=== PATIENT | male | born 1990 | race Caucasian/White ===

== ENCOUNTER 2017-03-14 22:10 | Emergency (ER) | payer BC, OTHER ==
[~2017-03-14] VITALS: Ht 170.2 cm; Wt 85.0 kg
[~2017-03-14 22:10] MED LIST: CIPR0.3S2 EACH EAR; Z.0.NO CURRENT MEDS
[2017-03-14 22:16] VITALS: BP 145/91; PULSE 96; RESP 18; TEMP 98.5; O2SAT 98
[2017-03-14] MEDS ORDERED: TRAM50TA PO (22:21)
--- NOTE | 2017-03-15 00:30 | PD ---
HPI Chief Complaint: Psychiatric Symptoms Time Seen by Provider: 00:20 Travel History International Travel<30 days: No Contact w/Intl Traveler<30days: No Traveled to known affect area: No History of Present Illness HPI 26-year-old male complains of depression and suicidal. Patient was Wiley acted and brought to ED for evaluation. Patient denies any medical problem. Patient denies any headache. Patient denies any chest pain or shortness of breath. Patient denies abdominal pain. Patient denies any alcohol or illicit drug abuse. PFSH Past Medical History Heart Rhythm Problems: Yes (HEART MURMUR) Cardiovascular Problems: Yes (MURMUR) Diminished Hearing: No Tetanus Vaccination: > 5 Years Influenza Vaccination: No Social History Alcohol Use: Yes (weekend) Tobacco Use: Yes (1/2ppd) Substance Use: No Allergies-Medications (Allergen,Severity, Reaction): Coded Allergies: penicillin G (Unverified Allergy, Severe, N/V, 03/14/17) Reported Meds & Prescriptions Reported Meds & Active Scripts Active Reported Tramadol (Tramadol HCl) 50 Mg Tab 50 Mg PO Q6H PRN Review of Systems General / Constitutional: No: Fever Eyes: No: Visual changes HENT: No: Headaches Cardiovascular: No: Chest Pain or Discomfort Respiratory: No: Shortness of Breath Gastrointestinal: No: Abdominal Pain Genitourinary: No: Dysuria Musculoskeletal: No: Pain Skin: No Rash Neurologic: No: Weakness Psychiatric: No: Depression Endocrine: No: Polydipsia Hematologic/Lymphatic: No: Easy Bruising Physical Exam Narrative GENERAL: Well-nourished, well-developed patient. SKIN: Focused skin assessment warm/dry. HEAD: Normocephalic. EYES: No scleral icterus. No injection or drainage. NECK: Supple, trachea midline. No JVD or lymphadenopathy. CARDIOVASCULAR: Regular rate and rhythm without murmurs, gallops, or rubs. RESPIRATORY: Breath sounds equal bilaterally. No accessory muscle use. GASTROINTESTINAL: Abdomen soft, non-tender, nondistended. MUSCULOSKELETAL: No cyanosis, or edema. BACK: Nontender without obvious deformity. No CVA tenderness. Neurologic exam normal. Data Data Last Documented VS Vital Signs Date Time Temp Pulse Resp B/P (MAP) Pulse Ox O2 Delivery O2 Flow Rate FiO2 03/14/17 22:16 98.5 96 18 145/91 (109) 98 Orders Orders Complete Blood Count With Diff (03/15/17 00:29) Comprehensive Metabolic Panel (03/15/17 00:29) Psych Screen (03/15/17 00:29) Drug Screen, Random Urine (03/15/17 00:29) MDM Medical Decision Making Medical Screen Exam Complete: Yes Emergency Medical Condition: Yes Differential Diagnosis Differential diagnosis including adjustment disorder, depression, suicidal. Narrative Course 26-year-old male with depression and suicidal. Patient was Wiley donna. Jimmy Infante MD Mar 15, 2017 00:30
[2017-03-15 02:00] VITALS: BP 120/68; PULSE 74; RESP 16; O2SAT 99
[2017-03-15 02:10] LABS: AUTOMATED NEUTROPHIL # 13.2 TH/MM3 (1.8-7.7); BASOPHIL # 0.1 TH/MM3 (0-0.2); BASOPHIL % 0.6 % (0.0-2.0); EOSINOPHIL # 0.1 TH/MM3 (0-0.4); EOSINOPHIL % 0.4 % (0.0-4.0); HEMATOCRIT 45.9 % (39.0-51.0); HEMO FLAGS DIFF FINAL; LYMPH % 11.4 % (9.0-44.0); LYMPHOCYTE # 1.8 TH/MM3 (1.0-4.8); MEAN CELL VOLUME 85.8 FL (80.0-100.0); MEAN CORPUSCULAR HEMOGLOBIN 29.7 PG (27.0-34.0); MEAN CORPUSCULAR HGB CONC 34.6 % (32.0-36.0); MONO % 5.3 % (0.0-8.0); NEUT % 82.3 % (16.0-70.0); PLATELET COUNT 282 TH/MM3 (150-450); RED BLOOD COUNT 5.35 MIL/MM3 (4.50-5.90); RED CELL DISTRIBUTION WIDTH 12.3 % (11.6-17.2); WHITE BLOOD COUNT 16.1 TH/MM3 (4.0-11.0)
[2017-03-15 02:27] LABS: ANION GAP 9 MEQ/L (5-15); AST (GOT) 25 U/L (15-37); BICARBONATE 24.7 MEQ/L (21.0-32.0); BLOOD UREA NITROGEN 19 MG/DL (7-18); CHLORIDE 106 MEQ/L (98-107); GLOMERULAR FILTRATION RATE 77 ML/MIN (>89); POTASSIUM 3.5 MEQ/L (3.5-5.1); SODIUM (NA) 140 MEQ/L (136-145)
[2017-03-15 02:30] LABS: ALKALINE PHOSPHATASE 69 U/L (45-117); ALT (GPT) 23 U/L (12-78); TOTAL BILIRUBIN ADULT 0.3 MG/DL (0.2-1.0)
[2017-03-15 10:42] VITALS: BP 136/69; PULSE 77; RESP 18; TEMP 98.6; O2SAT 99
[2017-03-15] MEDS ORDERED: IBUPROFEN 400 MG TAB PO ONE (12:30)
[2017-03-15 13:07] VITALS: BP 148/69; PULSE 65; RESP 17; TEMP 98.7; O2SAT 97
--- NOTE | 2017-03-15 16:01 | PD ---
History of Present Illness Chief Complaint: Psychiatric Symptoms Time Seen by Provider: 15:30 Travel History International Travel<30 Days: No Contact w/Intl Traveler<30days: No Known affected area: No Legal Status Legal Status: Wiley Act Wiley Act Signed By: Sharlene Viera Wiley Act Comment: 2016 @ 3933 History of Present Illness: History of Present Illness HPI 26-year-old, , male with no previous psychiatric history who in context of an argument with his was placed under a Wiley act by [place]. Wiley act alleges that the police were called by the patient's who reported the patient made a statement "life isn't worth living anymore ". The patient and his were arguing over them getting a divorce. She asked him to leave the house and while he was packing his belongings he took his firearm and placed it into his backpack. He reports that he is licensed to carry his weapon and therefore took his weapon because he did not want to leave it in the home. The patient did not make any attempt at harming himself. Electronic medical record is reviewed. No previous contact with [facility] psychiatry Department. Negative toxicology screen. The patient has been monitored here and secure environment and he has presented no behavioral dysregulation and no suicidality. The patient is alert, oriented, dressed in [facility] with adequate hygiene. There is no evidence of any psychosis, no bigg or hypomania. There is no reported symptom of depression or anxiety. He denies any suicidal ideation. Intent or plan. He admits to having made the statement but clarifies that he was made in context of an argument and he had no intention of harming himself or anyone else. He explains that he in fact took his gun because he did not know where he was going to stay the night and needed it for his protection. He tells me that he will plan on staying with some friends if not allowed to return home. PFSH Past Medical History Heart Rhythm Problems: Yes (HEART MURMUR) Cardiovascular Problems: Yes (MURMUR) Diminished Hearing: No Tetanus Vaccination: > 5 Years Influenza Vaccination: No Psychiatric History Psychiatric History Hx Psychiatric Treatment: DENIES any previous history. Denies any previous suicidal attempts. Denies any legal history. History of Inpatient Treatment: No Guns or firearms in home: Yes (firearms were taken by the police department) Social History Born and raised in [place]. Completed high school. since July 2015. Has no children. 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 Hx Alcohol Use: Yes (weekend) Hx Tobacco Use: Yes (1/2ppd) Hx Substance Use: No Hx of Substance Use Treatment: No Family Psychiatric History Negative Allergies-Medications (Allergen,Severity, Reaction): Coded Allergies: penicillin G (Unverified Allergy, Severe, N/V, 03/14/17) Reported Meds & Prescriptions Reported Meds & Active Scripts Active Reported Tramadol (Tramadol HCl) 50 Mg Tab 50 Mg PO Q6H PRN Mental Status Examination Appearance: Appropriate Consciousness: Alert Orientation: x4 Motor Activity: Normal gait Speech: Unremarkable Language: Adequate Fund of Knowledge: Adequate Attention and Concentration: Adequate Memory: Unremarkable Mood: Appropriate Affect: Appropriate Thought Process & Associations: Intact, Logical, Goal directed Thought Content: Appropriate Hallucination Type: None Delusion Type: None Suicidal Ideation: No Suicidal Plan: No Suicidal Intention: No Homicidal Ideation: No Homicidal Plan: No Homicidal Intention: No Insight: Adequate Judgment: Adequate MDM Medical Decision Making Medical Record Reviewed: Yes Assessment/Plan 26-year-old, , male with no previous psychiatric history who in context of an argument with his was placed under a Wiley act by [place] [employer]. Wiley act alleges that the police were called by the patient's who reported the patient made a statement "life isn't worth living anymore ". The patient and his were arguing over them getting a divorce. She asked him to leave the house and while he was packing his belongings he took his firearm and placed it into his backpack. He reports that he is licensed to carry his weapon and therefore took his weapon because he did not want to leave it in the home. The patient has not presented any evidence of any unstable mental illness as defined under the Wiley act. He denies any suicidal or homicidal ideation, intent or plan. He is future oriented and adequate protective factors. He states that he has a younger 14-year-old brother that was abandoned by his father and he has to step up and help parent him at this time. He does not meet Wiley act criteria and is requesting discharge. He agrees to return to the emergency department if any changes. Lift Wiley act. Patient is psychiatrically cleared for discharge from ED . Orders Orders Complete Blood Count With Diff (03/15/17 00:29) Comprehensive Metabolic Panel (03/15/17 00:29) Psych Screen (03/15/17 00:29) Drug Screen, Random Urine (03/15/17 00:29) Diet Regular Basic (03/15/17 Breakfast) Diet Regular Basic (03/15/17 Lunch) Ibuprofen (Motrin) (03/15/17 12:30) Results Vital Signs Date Time Temp Pulse Resp B/P (MAP) Pulse Ox O2 Delivery O2 Flow Rate FiO2 03/15/17 13:07 98.7 65 17 148/69 (95) 97 03/15/17 10:42 98.6 77 18 136/69 (91) 99 Room Air 03/15/17 02:00 74 16 120/68 (85) 99 Room Air 03/14/17 22:16 98.5 96 18 145/91 (109) 98 Laboratory Tests Test 03/15/17 01:25 White Blood Count 16.1 Red Blood Count 5.35 Hemoglobin 15.9 Hematocrit 45.9 Mean Corpuscular Volume 85.8 Mean Corpuscular Hemoglobin 29.7 Mean Corpuscular Hemoglobin Concent 34.6 Red Cell Distribution Width 12.3 Platelet Count 282 Mean Platelet Volume 9.5 Neutrophils (%) (Auto) 82.3 Lymphocytes (%) (Auto) 11.4 Monocytes (%) (Auto) 5.3 Eosinophils (%) (Auto) 0.4 Basophils (%) (Auto) 0.6 Neutrophils # (Auto) 13.2 Lymphocytes # (Auto) 1.8 Monocytes # (Auto) 0.9 Eosinophils # (Auto) 0.1 Basophils # (Auto) 0.1 CBC Comment DIFF FINAL Differential Comment Blood Urea Nitrogen 19 Creatinine 1.14 Random Glucose 88 Total Protein 8.1 Albumin 4.5 Calcium Level 8.8 Alkaline Phosphatase 69 Aspartate Amino Transf (AST/SGOT) 25 Alanine Aminotransferase (ALT/SGPT) 23 Total Bilirubin 0.3 Sodium Level 140 Potassium Level 3.5 Chloride Level 106 Carbon Dioxide Level 24.7 Anion Gap 9 Estimat Glomerular Filtration Rate 77 Urine Opiates Screen NEG Urine Barbiturates Screen NEG Urine Amphetamines Screen NEG Urine Benzodiazepines Screen NEG Urine Cocaine Screen NEG Urine Cannabinoids Screen NEG Diagnosis Primary Impression: Adjustment disorder Psychiatrically Cleared: Yes Med/ Other Pt Specific Info: No Meds Exist/No RX given Disposition: 01 DISCHARGE HOME Condition: Stable Problem Qualifiers Primary Impression: Adjustment disorder Qualified Codes: F43.20 - Adjustment disorder, unspecified Flavia Velez [facility] Mar 15, 2017 16:01
--- NOTE | 2017-03-15 16:03 | PD ---
Physical Exam Date Seen by Provider: Mar 15, 2017 Time Seen by Provider: 15:57 Narrative 26 yo male here for evaluation of psych. Patient was Saurabh acted by police. Wiley act was lifted by school psychologist. Please refer to her note. I was asked to dispo the patient. patient has no complains to me. His labs were reassuring. Vitals stable. Ready to go home. Data Data Last Documented VS Vital Signs Date Time Temp Pulse Resp B/P (MAP) Pulse Ox O2 Delivery O2 Flow Rate FiO2 03/15/17 15:46 03/15/17 13:07 98.7 65 17 97 03/15/17 10:42 Room Air Orders Orders Complete Blood Count With Diff (03/15/17 00:29) Comprehensive Metabolic Panel (03/15/17 00:29) Psych Screen (03/15/17 00:29) Drug Screen, Random Urine (03/15/17 00:29) Diet Regular Basic (03/15/17 Breakfast) Diet Regular Basic (03/15/17 Lunch) Ibuprofen (Motrin) (03/15/17 12:30) Ed Discharge Order (03/15/17 15:56) Labs Laboratory Tests Test 03/15/17 01:25 White Blood Count 16.1 TH/MM3 Red Blood Count 5.35 MIL/MM3 Hemoglobin 15.9 GM/DL Hematocrit 45.9 % Mean Corpuscular Volume 85.8 FL Mean Corpuscular Hemoglobin 29.7 PG Mean Corpuscular Hemoglobin Concent 34.6 % Red Cell Distribution Width 12.3 % Platelet Count 282 TH/MM3 Mean Platelet Volume 9.5 FL Neutrophils (%) (Auto) 82.3 % Lymphocytes (%) (Auto) 11.4 % Monocytes (%) (Auto) 5.3 % Eosinophils (%) (Auto) 0.4 % Basophils (%) (Auto) 0.6 % Neutrophils # (Auto) 13.2 TH/MM3 Lymphocytes # (Auto) 1.8 TH/MM3 Monocytes # (Auto) 0.9 TH/MM3 Eosinophils # (Auto) 0.1 TH/MM3 Basophils # (Auto) 0.1 TH/MM3 CBC Comment DIFF FINAL Differential Comment Blood Urea Nitrogen 19 MG/DL Creatinine 1.14 MG/DL Random Glucose 88 MG/DL Total Protein 8.1 GM/DL Albumin 4.5 GM/DL Calcium Level 8.8 MG/DL Alkaline Phosphatase 69 U/L Aspartate Amino Transf (AST/SGOT) 25 U/L Alanine Aminotransferase (ALT/SGPT) 23 U/L Total Bilirubin 0.3 MG/DL Sodium Level 140 MEQ/L Potassium Level 3.5 MEQ/L Chloride Level 106 MEQ/L Carbon Dioxide Level 24.7 MEQ/L Anion Gap 9 MEQ/L Estimat Glomerular Filtration Rate 77 ML/MIN Urine Opiates Screen NEG Urine Barbiturates Screen NEG Urine Amphetamines Screen NEG Urine Benzodiazepines Screen NEG Urine Cocaine Screen NEG Urine Cannabinoids Screen NEG MDM Medical Record Reviewed: Yes Supervised Visit with [place]: No Differential Diagnosis depression vs suicidal ideation vs substance abuse Narrative Course 26 yo male here for wiley act. I was asked to disposition patient. patient has no complains to me. He is ready to be discharged. dump worker has evaluated him and given him outpatient resources. Patient ok with this. Please refer to [employer]OR' s note and previous provider note for further information. Patient given outpatient resources. See ED if worst. Diagnosis Primary Impression: Depression Qualified Codes: F32.0 - Major depressive disorder, single episode, mild Patient Instructions: General Instructions Additional Instruction: F/u with outpatient psych. See ED if worsening symptoms. Med/Other Pt SpecificInfo: No Meds Exist/No RX given Disposition: 01 DISCHARGE HOME Condition: Stable Abhishek Obando Mar 15, 2017 16:03
== END 2017-03-15 17:45 | disposition home or self-care (01) ==
LOC: NEPD 22:10 → NEPJ 03-15 17:45
DX: F43.20 Adjustment disorder, unspecified (principal); F32.0 Major depressive disorder, single episode, mild; Z72.0 Tobacco use
CPT/HCPCS: 80053; 80307; 85025; 99284